=== PATIENT | female | born 2000 | race Caucasian/White ===

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

== ENCOUNTER 2022-02-23 18:38 | Observation (INO) ==
[2022-02-23] MEDS ORDERED: ACETAMINOPHEN 500 MG TAB PO STA (20:18)
[2022-02-23] MEDS ORDERED: SODIUM CHLORIDE 0.9% 1000ML 1,000 ML IV SCH (20:19)
--- NOTE | 2022-02-23 20:25 | Emergency Department Note ---
Impression & Plan Elevated troponin, Cough, Acute electrocardiogram changes, Fever, COVID-19 ED Provider Note CHIEF COMPLAINT: Cough HISTORY OF PRESENT ILLNESS: Mey Stone is a 21 year old female with history of myocarditis, lung granuloma and anxiety who presents to the Emergency Department for evaluation of a persistent cough over the past 4 weeks with development of fevers and heart palpitations today. The patient states that she initially developed a cough with mucous production when she tested +COVID-19 four weeks prior. Since then, her other associated flu like symptoms had improved, however, her productive cough has persisted. Today, the patient states that she developed a fever of 100.4F and noticed that she felt more short of breath after taking a walk. Additionally, she did note an episode of heart palpitations. The patient did take another COVID-19 test today at home which was negative. As she was concerned for possible pneumonia or other acute illness, she presents to the ED for further evaluation this evening. Currently, she denies having significant discomfort other than having the cough. She did take a dose of Sudafed earlier today with some improvement. She otherwise denies having lightheadedness/dizziness, sore throat, specific chest pain, dyspnea, abdominal pain, nausea, vomiting, diarrhea or urinary symptoms. 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 She states that her symptoms do not feel similar to that time. She was also previously found to have a lung granuloma for which she did follow up with Pulmonary medicine, however she did not go through with additional testing. REVIEW OF SYSTEMS: 10 systems were reviewed and were negative unless otherwise stated in HPI as above PHYSICAL EXAM: VITALS: Vitals are noted on the nurse's note and reviewed by myself. Vital signs stable. General: Resting in bed, no acute distress HEENT: Normocephalic, atraumatic, PERRL, EOMI, mucous membranes moist, oropharynx clear Neck: Supple, no lymphadenopathy, non-tender to palpation, ROM intact without pain Resp: Good inspiratory effort on room air, lung sounds clear bilaterally without wheezing, rales or rhonchi, no cough during exam CV: Bradycardic rate with occasional PVC, normal S1-S2, peripheral pulses palpated Back: Non-tender to palpation Abd: Soft, non-distended, non-tender MSK: Moving all extremities without apparent pain or difficulty Integumentary: Warm, dry, no appreciable rash Neuro: Awake, alert and oriented x 3, interacting and answering questions appropriately Differential diagnosis includes myocarditis, cardiac ischemia, PE, viral syndrome, bacterial infection, COVID-19, pneumonia, influenza, bronchitis, meningitis as well as others were entertained. EMERGENCY DEPARTMENT COURSE: Physical exam and history were performed. Nursing triage notes, EMR, and medication list were personally reviewed. Patient appears to have a persistent cough over the past 4 weeks with d evelopment of fevers and heart palpitations today. Additional history as described above. See physical exam as noted above. Continuous claim representative: Order was placed for continuous claim representative. Patient was placed on the claim representative. Patient was noted to be in sinus bradycardia at an initial rate of 54 bpm. EKG was obtained and reviewed by myself. This did show sinus bradycardia at 64 bpm with occasional PVC, possible left atrial enlargement with T wave abnormalities in the inferior and lateral leads. When compared to study from 04/11/2021, PVCs are now present and the nonspecific T wave abnormalities in the inferior and lateral leads are new. The patient was offered medications. IV access was established and she was given Tylenol 1000 mg and 1 L NSS. Labs were obtained and reviewed by myself as below. Of note, leukocytosis with a WBC of 11.67. No concern for anemia with hemoglobin 12.2. Electrolytes WNL. Magnesium WNL. Renal indices stable. LFTs nondiagnostic. High-sensitivity troponin I was noted to be elevated at 58.9. ESR was slightly elevated at 21. CRP not elevated at <0.50. Lyme titer, anaplasmosis, Babesia and toxoplasmosis ordered, pending. The patient did test positive for COVID19 here today. Influenza A/B and RSV negative. Chest x-ray and CTA chest were obtained and reviewed by radiologist myself as below. CTA was negative for PE. There were patchy airspace consolidations in the left lung base typical for pneumonia, likely consistent with her COVID19 infection. Upon reevaluation, the patient was doing well. I discussed the results of the above findings with her at bedside as well as her mother over the phone. Given her elevated troponin level with acute EKG changes, I do feel that she would benefit from continued management in the hospital. I did discuss her case with Dr. Burns of the [facility] hospitalist group. She agreed to evaluate the patient. The patient verbalized understanding and agreement with the treatment plan as above. The chart was completed utilizing [employer] Speech Voice Recognition Software. G rammatical errors, random word insertions, pronoun errors, and incomplete sentences are an occasional consequence of this system due to software limitations, ambient noise, and hardware issues. Any formal questions or concerns about the content, text, or information contained within the body of this dictation should be directly addressed to the provider for clarification. Past Med/Surg History Medical History (Updated 02/24/22 @ 01:26 by Ria Delgado PA-C) Allergic rhinitis Lung granuloma Mild intermittent asthma Surgical History (Updated 02/24/22 @ 01:24 by Ria Delgado PA-C) No pertinent past surgical history Social History Smoking Status: Never smoker Second Hand Exposure: No; Hx Alcohol Use: No Hx Substance Use: No Preferred Language: Yakut Beliefs That Will Affect Care: None Current Living Situation: Family Current Living Situation Comment: Home with family; currently residing in college dorm Feels Safe at Home: Yes Assistive Devices: None Allergies Allergies Allergy/AdvReac Type Severity Reaction Status Date / Time pollen extracts Allergy Intermediate CONGESTION Verified 02/23/22 22:17 Home Meds Home Medications Medication Instructions Recorded Confirmed albuterol sulfate 90 mcg/actuation 2 puff inhalation Q6H PRN prior to 04/10/21 02/23/22 aerosol inhaler exercise fexofenadine 180 mg tablet 180 mg PO DAILY PRN Allergic 04/10/21 02/23/22 Symptoms fluticasone propionate 50 2 spray intranasal DAILY PRN 04/10/21 02/23/22 mcg/actuation nasal Allergy Symptoms spray,suspension Results & Data (ED) Vital Signs Vital Signs - 24 hr 02/23/22 18:40 02/23/22 21:30 02/23/22 22:00 Temperature 37.7 C H Temperature Source Temporal Artery Scan Pulse Rate 54 L 54 L 51 L Pulse Rate from SpO2 Sensor 48 L 51 L Respiratory Rate 16 22 24 Blood Pressure 127/51 L 120/60 110/62 Blood Pressure Mean 76 80 78 Pulse Oximetry 98 100 99 Oxygen Delivery Method Room Air Room Air Sepsis Recent Fever Within 48 Hours No Sepsis New/Unexplained Change in Mental Status No Sepsis Action Taken by Nursing No Action Required 02/23/22 22:31 02/23/22 23:00 02/23/22 23:31 Temperature Temperature Source Pulse Rate 52 L 43 L 48 L Pulse Rate from SpO2 Sensor 49 L 43 L 44 L Respiratory Rate 18 22 19 Blood Pressure 124/42 L 115/65 125/68 Blood Pressure Mean 69 81 87 Pulse Oximetry 100 100 98 Oxygen Delivery Method Room Air Room Air Room Air Sepsis Recent Fever Within 48 Hours Sepsis New/Unexplained Change in Mental Status Sepsis Action Taken by Nursing Laboratory Data Result diagrams: 02/23/22 20:45 02/23/22 20:45 Lab Results 02/23/22 02/23/22 02/23/22 Range/Units 20:45 20:45 20:45 WBC 11.67 H (4.8-10.8) K/ul RBC 4.68 (3.93-5.22) M/uL Hgb 12.2 (12.0-16.0) g/dl Hct 38.7 (34.1-44.9) % MCV 82.7 (80.0-100.0) fL MCH 26.1 (25.0-34.0) pg MCHC 31.5 L (32.0-36.0) g/dL RDW Std Deviation 39.0 (36.4-46.3) fL RDW Coeff of Bibi 13.0 (11.5-14.5) % Plt Count 264 (130-400) K/uL MPV 10.6 (9.4-12.3) fL Immature Gran % (Auto) 0.4 % Neut % (Auto) 78.7 % Lymph % (Auto) 13.3 % [place] % (Auto) 7.3 % Eos % (Auto) 0.1 % Baso % (Auto) 0.2 % Neut # (Auto) 9.19 H (1.4-6.5) K/uL Lymph # (Auto) 1.55 (1.2-3.4) K/uL [place] # (Auto) 0.85 H (0.24-0.82) K/uL Eos # (Auto) 0.01 (0-0.50) K/uL Baso # (Auto) 0.02 (0-0.2) K/uL Immature Gran # (Auto) 0.05 H (0.00-0.02) K/uL ESR (0-20) mm/hr Sodium 137 (136-145) mmol/L Potassium 3.6 (3.5-5.1) mmol/L Chloride 102 (98-107) mmol/L Carbon Dioxide 29 (21-32) mmol/L Anion Gap 6 (3-11) BUN 11 (6-23) mg/dl Creatinine 0.84 (0.6-1.2) mg/dl Est Cr Clr Drug Dosing 112.6 ml/min Est GFR ( Amer) 116.8 ml/min Est GFR (Non-Af Amer) 100.8 ml/min BUN/Creatinine Ratio 13.1 (10-20) Glucose 97 (70-99(Fasting)) mg/dl Calcium 9.6 (8.5-10.1) mg/dl Magnesium (1.7-2.4) mg/dl Total Bilirubin 1.0 (0.2-1.0) mg/dl AST 23 (13-39) U/L ALT 13 (7-52) U/L Alkaline Phosphatase 90 (34-104) U/L Troponin I High Sens 58.9 H* (0-14) pg/ml C-Reactive Protein (0-0.5) mg/dl Total Protein 8.0 (6.0-8.3) gm/dl Albumin 4.7 (3.4-5.0) gm/dl Globulin 3.3 (2.5-4.0) gm/dl Albumin/Globulin Ratio 1.4 (0.9-2) Procalcitonin (0-0.5) ng/ml TSH (0.300-4.500) uIu/ml Anaplasma Smear See Comment Babesia Smear See Comment Lyme Disease IgG Ab (Negative) Lyme Disease IgM Ab (Negative) SARS-CoV-2 (PCR) (Negative) Influenza Type A (PCR) (Neg) Influenza Type B (PCR) (Neg) RSV (RT-PCR) (Neg) 02/23/22 02/23/22 02/23/22 Range/Units 20:45 20:45 20:45 WBC (4.8-10.8) K/ul RBC (3.93-5.22) M/uL Hgb (12.0-16.0) g/dl Hct (34.1-44.9) % MCV (80.0-100.0) fL MCH (25.0-34.0) pg MCHC (32.0-36.0) g/dL RDW Std Deviation (36.4-46.3) fL RDW Coeff of Bibi (11.5-14.5) % Plt Count (130-400) K/uL MPV (9.4-12.3) fL Immature Gran % (Auto) % Neut % (Auto) % Lymph % (Auto) % [place] % (Auto) % Eos % (Auto) % Baso % (Auto) % Neut # (Auto) (1.4-6.5) K/uL Lymph # (Auto) (1.2-3.4) K/uL [place] # (Auto) (0.24-0.82) K/uL Eos # (Auto) (0-0.50) K/uL Baso # (Auto) (0-0.2) K/uL Immature Gran # (Auto) (0.00-0.02) K/uL ESR 21 H (0-20) mm/hr Sodium (136-145) mmol/L Potassium (3.5-5.1) mmol/L Chloride (98-107) mmol/L Carbon Dioxide (21-32) mmol/L Anion Gap (3-11) BUN (6-23) mg/dl Creatinine (0.6-1.2) mg/dl Est Cr Clr Drug Dosing ml/min Est GFR ( Amer) ml/min Est GFR (Non-Af Amer) ml/min BUN/Creatinine Ratio (10-20) Glucose (70-99(Fasting)) mg/dl Calcium (8.5-10.1) mg/dl Magnesium 2.1 (1.7-2.4) mg/dl Total Bilirubin (0.2-1.0) mg/dl AST (13-39) U/L ALT (7-52) U/L Alkaline Phosphatase (34-104) U/L Troponin I High Sens (0-14) pg/ml C-Reactive Protein < 0.50 (0-0.5) mg/dl Total Protein (6.0-8.3) gm/dl Albumin (3.4-5.0) gm/dl Globulin (2.5-4.0) gm/dl Albumin/Globulin Ratio (0.9-2) Procalcitonin < 0.05 (0-0.5) ng/ml TSH (0.300-4.500) uIu/ml Anaplasma Smear Babesia Smear Lyme Disease IgG Ab Negative (Negative) Lyme Disease IgM Ab Positive A (Negative) SARS-CoV-2 (PCR) (Negative) Influenza Type A (PCR) (Neg) Influenza Type B (PCR) (Neg) RSV (RT-PCR) (Neg) 02/23/22 02/23/22 Range/Units 20:45 22:50 WBC (4.8-10.8) K/ul RBC (3.93-5.22) M/uL Hgb (12.0-16.0) g/dl Hct (34.1-44.9) % MCV (80.0-100.0) fL MCH (25.0-34.0) pg MCHC (32.0-36.0) g/dL RDW Std Deviation (36.4-46.3) fL RDW Coeff of Bibi (11.5-14.5) % Plt Count (130-400) K/uL MPV (9.4-12.3) fL Immature Gran % (Auto) % Neut % (Auto) % Lymph % (Auto) % [place] % (Auto) % Eos % (Auto) % Baso % (Auto) % Neut # (Auto) (1.4-6.5) K/uL Lymph # (Auto) (1.2-3.4) K/uL [place] # (Auto) (0.24-0.82) K/uL Eos # (Auto) (0-0.50) K/uL Baso # (Auto) (0-0.2) K/uL Immature Gran # (Auto) (0.00-0.02) K/uL ESR (0-20) mm/hr Sodium (136-145) mmol/L Potassium (3.5-5.1) mmol/L Chloride (98-107) mmol/L Carbon Dioxide (21-32) mmol/L Anion Gap (3-11) BUN (6-23) mg/dl Creatinine (0.6-1.2) mg/dl Est Cr Clr Drug Dosing ml/min Est GFR ( Amer) ml/min Est GFR (Non-Af Amer) ml/min BUN/Creatinine Ratio (10-20) Glucose (70-99(Fasting)) mg/dl Calcium (8.5-10.1) mg/dl Magnesium (1.7-2.4) mg/dl Total Bilirubin (0.2-1.0) mg/dl AST (13-39) U/L ALT (7-52) U/L Alkaline Phosphatase (34-104) U/L Troponin I High Sens (0-14) pg/ml C-Reactive Protein (0-0.5) mg/dl Total Protein (6.0-8.3) gm/dl Albumin (3.4-5.0) gm/dl Globulin (2.5-4.0) gm/dl Albumin/Globulin Ratio (0.9-2) Procalcitonin (0-0.5) ng/ml TSH 0.862 (0.300-4.500) uIu/ml Anaplasma Smear Babesia Smear Lyme Disease IgG Ab (Negative) Lyme Disease IgM Ab (Negative) SARS-CoV-2 (PCR) POSITIVE A* (Negative) Influenza Type A (PCR) Negative (Neg) Influenza Type B (PCR) Negative (Neg) RSV (RT-PCR) Negative (Neg) Administered Medications Discontinued Medications Acetaminophen (Acetaminophen 500 Mg Tab) 1,000 mg PO NOW STA Stop: 02/23/22 20:19 Last Admin: 02/23/22 20:53 Dose: 1,000 mg Documented By: ANA LAURA Sodium Chloride (Nss 1000ml) 1,000 mls @ 999 mls/hr IV .Q1H1M JOVANNI Stop: 02/23/22 21:19 Last Infusion: 02/23/22 22:03 Dose: 0 mls/hr Documented By: ANA LAURA Admin: 02/23/22 20:53 Dose: 999 mls/hr Documented By: ANA LAURA Ioversol (Optiray 320 125ml) 120 ml IV ONCE ONE Stop: 02/23/22 22:10 Last Admin: 02/23/22 22:13 Dose: 120 ml Documented By: ALINE Imaging Data Radiologist's Impression: Chest X-Ray 02/23/22 19:47 SINGLE VIEW CHEST CLINICAL HISTORY: Cough. FINDINGS: An AP, portable, upright chest radiograph is compared to chest x-ray and chest CT dated 04/10/2021. Calcified right hilar nodes are unchanged. The cardiomediastinal silhouette is unremarkable. The lungs and pleural spaces are clear. No pneumothorax is seen. The bony thorax is grossly intact. IMPRESSION: No active disease in the chest. ACT 112: Negative or not required by law. Electronically signed by: Reid Perez M.D. 02/23/2022 8:58 PM Chest CTA 02/23/22 20:15 CT ANGIOGRAM OF THE CHEST CLINICAL HISTORY: Atypical chest pain. Cough. Recent Covid. COMPARISON STUDY: Chest x-ray dated 02/23/2022. Chest CT dated 04/10/2021. TECHNIQUE: Following the IV administration of 120 cc of Optiray 320, CT angiogram of the chest was performed from the upper abdomen to the thoracic inlet utilizing the pulmonary embolus protocol. Images are reviewed in the axial, sagittal, and coronal planes. 3-D MIPS images are created and assessed. IV contrast was administered without complication. A dose lowering technique was utilized adhering to the principles of ALARA. CT DOSE: 238.13 mGy.cm FINDINGS: Thyroid: Normal in size and attenuation. Thoracic aorta: The thoracic aorta is normal in caliber and demonstrates standard 3-vessel arch anatomy. The thoracic aorta is not well opacified. Pulmonary vasculature: The pulmonary trunk is normal in caliber. There are no filling defects identified in main, lobar, or segmental pulmonary branches to suggest pulmonary embolus. Heart: The heart is normal in size and without pericardial effusion. Lungs and pleural spaces: There is mild patchy airspace consolidation at the left lung base. No pleural effusion is identified. Scattered calcified granulom as are observed. The trachea and central airways are patent. Mediastinum: Calcified mediastinal lymph nodes are similar to previous. No pathologically enlarged mediastinal lymph nodes are identified. Sowmya: Calcified right hilar lymph nodes are similar to previous. No pathologically enlarged hilar lymph nodes are identified. Axillae: There is no axillary lymphadenopathy. Upper abdomen: There is a calcified splenic granuloma. Partially visualized upper abdominal viscera is otherwise within normal limits. Skeletal structures: A hemangioma is noted in the body of T2. No lytic or blastic bony lesions are seen. IMPRESSION: 1. There is no evidence of pulmonary embolus in the main, lobar, or segmental p ulmonary arteries. 2. Patchy airspace consolidation at the left lung base is typical for pneumonia. Clinical correlation will be required and radiographic follow-up to resolution is recommended. Radiographic follow-up should include both PA and lateral views. ACT 112: Negative or not required by law. Electronically signed by: Reid Perez M.D. 02/23/2022 10:30 PM Discharge Plan Visit Data Chief Complaint: Cough Stated Complaint: COUGH, POSSIBLE PNEUMONIA. FEVER 100.4 - COV TEST ED Provider: [facility] Midlevel Provider: Ria Delgado Discharge Problem: Elevated troponin, Cough, Acute electrocardiogram changes, Fever, COVID-19 Patient Disposition: Admitted As Inpatient Forms Stand Alone Forms: S-cubism Prescriptions Prescriptions: No Action fexofenadine 180 mg Tablet 180 mg PO DAILY PRN (Reason: Allergic Symptoms) albuterol sulfate 90 mcg/actuation Hfa Aerosol Inhaler 2 puff INHALATION Q6H PRN (Reason: prior to exercise) Rx Instructions: and uses as needed for allergy season fluticasone propionate 50 mcg/actuation Rebecca,Suspension 2 spray INTRANASAL DAILY PRN (Reason: Allergy Symptoms) Referrals Referrals: [facility] [Primary Care Provider] -
--- NOTE | 2022-02-23 20:59 | XRay Report ---
SINGLE VIEW CHEST CLINICAL HISTORY: Cough. FINDINGS: An AP, portable, upright chest radiograph is compared to chest x-ray and chest CT dated 03/14. Calcified right hilar nodes are unchanged. The cardiomediastinal silhouette is unremarkable. The lungs and pleural spaces are clear. No pneumothorax is seen. The bony thorax is grossly intact. IMPRESSION: No active disease in the chest. ACT 112: Negative or not required by law. Electronically signed by: Reid Perez M.D. 02/23/2022 8:58 PM
[2022-02-23 21:07] LABS: Basophils # (auto) 0.02 K/uL (0-0.2); Basophils % (auto) 0.2 %; Eosinophils # (auto) 0.01 K/uL (0-0.50); Eosinophils % (auto) 0.1 %; Hematocrit (blood only) 38.7 % (34.1-44.9); Hemoglobin 12.2 g/dl (12.0-16.0); Immature Granulocytes # (auto) 0.05 K/uL (0.00-0.02); Immature Granulocytes % (auto) 0.4 %; Lymphocytes # (auto) 1.55 K/uL (1.2-3.4); Lymphocytes % (auto) 13.3 %; Mean Corpuscular Hemoglobin 26.1 pg (25.0-34.0); Mean Corpuscular Hgb Conc 31.5 g/dL (32.0-36.0); Mean Corpuscular Volume 82.7 fL (80.0-100.0); Mean Platelet Volume 10.6 fL (9.4-12.3); Monocytes # (auto) 0.85 K/uL (0.24-0.82); Monocytes % (auto) 7.3 %; Neutrophils # (auto) 9.19 K/uL (1.4-6.5); Neutrophils % (auto) 78.7 %; Platelet Count 264 K/uL (130-400); Red Blood Count 4.68 M/uL (3.93-5.22); White Blood Count 11.67 K/ul (4.8-10.8)
[2022-02-23 21:35] LABS: Albumin Globulin Ratio 1.4 (0.9-2); Albumin Level 4.7 gm/dl (3.4-5.0); BUN Creatinine Ratio 13.1 (10-20); Calcium 9.6 mg/dl (8.5-10.1); Creatinine Clr Calc Pharmacy 112.6 ml/min; Est GFR (African American) 116.8 ml/min; Est GFR (Non-African American) 100.8 ml/min; Globulin 3.3 gm/dl (2.5-4.0); Potassium 3.6 mmol/L (3.5-5.1)
[2022-02-23 21:40] LABS: Troponin I High Sensitivity 58.9 pg/ml (0-14)
[2022-02-23] MEDS ORDERED: OPTIRAY 320 125ml IV ONE (22:09)
--- NOTE | 2022-02-23 22:32 | CT Scan Report ---
CT ANGIOGRAM OF THE CHEST CLINICAL HISTORY: Atypical chest pain. Cough. Recent Covid. COMPARISON STUDY: Chest x-ray dated 02/23/2022. Chest CT dated 04/10/2021. TECHNIQUE: Following the IV administration of 120 cc of Optiray 320, CT angiogram of the chest was pe rformed from the upper abdomen to the thoracic inlet utilizing the pulmonary embolus protocol. Images are reviewed in the axial, sagittal, and coronal planes. 3-D MIPS images are created and assessed. I V contrast was administered without complication. A dose lowering technique was utilized adhering to the principles of ALARA. CT DOSE: 238.13 mGy.cm FINDINGS: Thyroid: Normal in size and attenuation. Thoracic aorta: The thoracic aorta is normal in caliber and demonstrates standard 3-vessel arch anato my. The thoracic aorta is not well opacified. Pulmonary vasculature: The pulmonary trunk is normal in caliber. There are no filling defects identif ied in main, lobar, or segmental pulmonary branches to suggest pulmonary embolus. Heart: The heart is normal in size and without pericardial effusion. Lungs and pleural spaces: There is mild patchy airspace consolidation at the left lung base. No pleur al effusion is identified. Scattered calcified granulomas are observed. The trachea and central airwa ys are patent. Mediastinum: Calcified mediastinal lymph nodes are similar to previous. No pathologically enlarged me diastinal lymph nodes are identified. Sowmya: Calcified right hilar lymph nodes are similar to previous. No pathologically enlarged hilar lym ph nodes are identified. Axillae: There is no axillary lymphadenopathy. Upper abdomen: There is a calcified splenic granuloma. Partially visualized upper abdominal viscera i s otherwise within normal limits. Skeletal structures: A hemangioma is noted in the body of T2. No lytic or blastic bony lesions are se en. IMPRESSION: 1. There is no evidence of pulmonary embolus in the main, lobar, or segmental pulmonary arteries. 2. Patchy airspace consolidation at the left lung base is typical for pneumonia. Clinical correlation will be required and radiographic follow-up to resolution is recommended. Radiographic follow-up rosa uld include both PA and lateral views. ACT 112: Negative or not required by law. Electronically signed by: Reid Perez M.D. 02/23/2022 10:30 PM
[2022-02-23 23:01] LABS: C Reactive Protein < 0.50 mg/dl (0-0.5); Magnesium 2.1 mg/dl (1.7-2.4)
[2022-02-23 23:31] LABS: Procalcitonin < 0.05 ng/ml (0-0.5)
[2022-02-23 23:37] LABS: Lyme Ab IgG w/WB Rflx Negative (Negative)
[2022-02-23 23:48] LABS: Lyme Ab IgM w/WB Rflx Positive (Negative)
--- NOTE | 2022-02-23 23:49 | History & Physical Report ---
Date of Service February 23, 2022 Assessment & Plan (1) Myocarditis: Plan: 21yo female with history of myocarditis presenting with complaint of chest tightness, elevated HS-troponin of 58.9. Recent Covid-19 infection. Lyme IgM POSITIVE with Western blot pending Ddx to include myocarditis, ?infections secondary to recent Covid-19 infection. ?Lyme - was presumed before but patient had negative Western blot. Elevated WBC=11.67 and ESR of 21 -Telemetry monitoring -Trend troponin -Check 2D echo -Colchicine 0.6mg po BID -Lyme serology, Anaplasma, Babesia and Toxoplasma sent from ER - results pending -Cardiology consultation appreciated Patient is very active, avid runner. Has baseline bradycardia with HR 40's - 50's. Has had junctional rhythm with AV dissociation in the past most likely secondary to increased vagal tone. (2) Pneumonia: Plan: Patient with persistent cough productive for yellow sputum. New fever, chills today. CT suggestive of consolidation in LLL, crackles on exam. Patient is non-toxic in appearance, HD stable, no respiratory distress, adequate oxygenation on room air -Azithromycin and Ceftriaxone for possible CAP -Tylenol as needed -Zofran as needed (3) COVID-19: Plan: Patient POSITIVE for Covid-19 several weeks ago (3-4 weeks ago). PCR test is POSITIVE today as well. Doubt that this represents a new infection. PCR may remain positive up to 3 months of infection due to detection of viral particles. -Maintain isolation precautions for now -Monitor oxygenation (4) Mild intermittent asthma: Plan: Chronic. Stable. No wheezing History of Present Illness Chief Complaint: chest tightness Primary Care Provider: [facility] Mey Stone is a 21yo female presenting with tightness in her chest and lungs. Patient tested POSITIVE for Covid-19 infection appx 3-4 weeks ago. Overall she had a benign course. She has had a persistent cough since then, productive for thick yellow sputum. Today 02/23/22 she developed fever, chills as well as a feeling of tightness in her chest and lungs as well as feeling some palpitations. No syncope or dizziness (has some baseline dizziness with positional changes). She has had nasal congestion today as well and loss of taste and smell this AM. She performed a rapid Covid-19 test at home which was NEGATIVE. In the ER she is afebrile, HD stable - baseline bradycardia with frequent PVCs HS-troponin elevated at 58.9 as well as elevation of ESR to 21 and WBC to 11.67 Patient was hospitalized at [facility] on 04/11/21 after developing chest discomfort while running. She was noted to have an elevated troponin at 0.47. Echocardiogram was NORMAL. She was treated with Colchicine and Doxycycline for possible Lyme carditis. Her Western Blot analysis was found to be equivocal. Her cardiac rhythm during admission showed bradycardia and junctional rhythm with AV dissociation due to increased vagal tone. Frequent PVCs noted on Holter monitor 8% of beats on Holter monitor with two 4- beat NSVT runs Patient was seen by Cardiology in followup on 05/23/21. Allergies Allergy/AdvReac Type Severity Reaction Status Date / Time pollen extracts Allergy Intermediate CONGESTION Verified 02/23/22 22:17 Home Medications Medication Instructions Recorded Confirmed Type albuterol sulfate 90 mcg/actuation 2 puff inhalation Q6H PRN prior to 04/10/21 02/23/22 History aerosol inhaler exercise fexofenadine 180 mg tablet 180 mg PO DAILY PRN Allergic 04/10/21 02/23/22 History Symptoms fluticasone propionate 50 2 spray intranasal DAILY PRN 04/10/21 02/23/22 History mcg/actuation nasal Allergy Symptoms spray,suspension Past Med/Surg History Medical History (Updated 02/24/22 @ 03:20 by Mariana Burns DO) Allergic rhinitis Lung granuloma Mild intermittent asthma Myocarditis Surgical History (Updated 02/24/22 @ 01:24 by Ria Delgado PA-C) No pertinent past surgical history Family History (Updated 02/24/22 @ 03:12 by Mariana Burns DO) Other Family history non-contributory Social History Smoking Status: Never smoker Second Hand Exposure: No; Hx Alcohol Use: Yes Alcohol type: wine Hx Substance Use: No Preferred Language: Algerian Communication Ability: Effective Neurological Physiotherapist Required: No Beliefs That Will Affect Care: None Current Living Situation: Family Current Living Situation Comment: lives in a dorm, when not in a dorm at home with her family Other Information That Helps Us Care for You: No Feels Safe at Home: Yes Safety Concerns: Feels Safe At This Time Assistive Devices: None Review of Systems Review of Systems: All systems reviewed & are unremarkable except as noted in HPI & below Physical Exam Physical Exam: General: patient resting comfortably, NAD, non-toxic in appearance, AA&O x 4 Skin: warm, dry, intact, no rashes or lesions HEENT: NC/AT, PERRL, EOMI, anicteric sclera, conjunctiva without injection, external ear normal to inspection and nontender, nares patent, moist mucus membranes, dentition intact, no oropharyngeal lesions, neck supple, trachea midline, no LAD, no thyromegaly, no JVD Heart: +S1/S2, regular, bradycardic with occasional ectopic beat, no m/r/g Lungs: equal air entry bilaterally, crackles present in left base, no rhonchi/wheezes Abd: +BS, soft, NT/ND, no masses/organomegaly/ascites Ext: warm, 2+ pulses in UE/LE bilaterally, no clubbing/cyanosis or edema Neuro: nonfocal, patient AA&O x 4, speech intact, no facial droop, moving all extremities on command with equal strength 5/5 Results & Data Results & Data ([facility]) Vital Signs (Past 12 Hours) Vital Signs Temp Pulse Resp BP Pulse Ox O2 Del Method 02/23/22 23:31 48 L 19 125/68 98 Room Air 02/23/22 23:00 43 L 22 115/65 100 Room Air 02/23/22 22:31 52 L 18 124/42 L 100 Room Air 02/23/22 22:00 51 L 24 110/62 99 Room Air 02/23/22 21:30 54 L 22 120/60 100 Room Air 02/23/22 18:40 37.7 C H 54 L 16 127/51 L 98 Laboratory Results Laboratory Results WBC 11.67 K/ul (4.8-10.8) H 02/23/22 20:45 RBC 4.68 M/uL (3.93-5.22) 02/23/22 20:45 Hgb 12.2 g/dl (12.0-16.0) 02/23/22 20:45 Hct 38.7 % (34.1-44.9) 02/23/22 20:45 MCV 82.7 fL (80.0-100.0) 02/23/22 20:45 MCH 26.1 pg (25.0-34.0) 02/23/22 20:45 MCHC 31.5 g/dL (32.0-36.0) L 02/23/22 20:45 RDW Std Deviation 39.0 fL (36.4-46.3) 02/23/22 20:45 RDW Coeff of Bibi 13.0 % (11.5-14.5) 02/23/22 20:45 Plt Count 264 K/uL (130-400) 02/23/22 20:45 MPV 10.6 fL (9.4-12.3) 02/23/22 20:45 Immature Gran % (Auto) 0.4 % 02/23/22 20:45 Neut % (Auto) 78.7 % 02/23/22 20:45 Lymph % (Auto) 13.3 % 02/23/22 20:45 [place] % (Auto) 7.3 % 02/23/22 20:45 Eos % (Auto) 0.1 % 02/23/22 20:45 Baso % (Auto) 0.2 % 02/23/22 20:45 Neut # (Auto) 9.19 K/uL (1.4-6.5) H 02/23/22 20:45 Lymph # (Auto) 1.55 K/uL (1.2-3.4) 02/23/22 20:45 [place] # (Auto) 0.85 K/uL (0.24-0.82) H 02/23/22 20:45 Eos # (Auto) 0.01 K/uL (0-0.50) 02/23/22 20:45 Baso # (Auto) 0.02 K/uL (0-0.2) 02/23/22 20:45 Immature Gran # (Auto) 0.05 K/uL (0.00-0.02) H 02/23/22 20:45 ESR 21 mm/hr (0-20) H 02/23/22 20:45 Sodium 137 mmol/L (136-145) 02/23/22 20:45 Potassium 3.6 mmol/L (3.5-5.1) 02/23/22 20:45 Chloride 102 mmol/L (98-107) 02/23/22 20:45 Carbon Dioxide 29 mmol/L (21-32) 02/23/22 20:45 Anion Gap 6 (3-11) 02/23/22 20:45 BUN 11 mg/dl (6-23) 02/23/22 20:45 Creatinine 0.84 mg/dl (0.6-1.2) 02/23/22 20:45 Est Cr Clr Drug Dosing 112.6 ml/min 02/23/22 20:45 Est GFR ( Amer) 116.8 ml/min 02/23/22 20:45 Est GFR (Non-Af Amer) 100.8 ml/min 02/23/22 20:45 BUN/Creatinine Ratio 13.1 (10-20) 02/23/22 20:45 Glucose 97 mg/dl (70-99(Fasting)) 02/23/22 20:45 Calcium 9.6 mg/dl (8.5-10.1) 02/23/22 20:45 Magnesium 2.1 mg/dl (1.7-2.4) 02/23/22 20:45 Total Bilirubin 1.0 mg/dl (0.2-1.0) 02/23/22 20:45 AST 23 U/L (13-39) 02/23/22 20:45 ALT 13 U/L (7-52) 02/23/22 20:45 Alkaline Phosphatase 90 U/L (34-104) 02/23/22 20:45 Troponin I High Sens 58.9 pg/ml (0-14) H* 02/23/22 20:45 C-Reactive Protein < 0.50 mg/dl (0-0.5) 02/23/22 20:45 Total Protein 8.0 gm/dl (6.0-8.3) 02/23/22 20:45 Albumin 4.7 gm/dl (3.4-5.0) 02/23/22 20:45 Globulin 3.3 gm/dl (2.5-4.0) 02/23/22 20:45 Albumin/Globulin Ratio 1.4 (0.9-2) 02/23/22 20:45 Procalcitonin < 0.05 ng/ml (0-0.5) 02/23/22 20:45 TSH 0.862 uIu/ml (0.300-4.500) 02/23/22 20:45 Anaplasma Smear See Comment 02/23/22 20:45 Babesia Smear See Comment 02/23/22 20:45 Lyme Disease IgG Ab Negative (Negative) 02/23/22 20:45 Lyme Disease IgM Ab Positive (Negative) A 02/23/22 20:45 SARS-CoV-2 (PCR) POSITIVE (Negative) A* 02/23/22 22:50 Influenza Type A (PCR) Negative (Neg) 02/23/22 22:50 Influenza Type B (PCR) Negative (Neg) 02/23/22 22:50 RSV (RT-PCR) Negative (Neg) 02/23/22 22:50 Impressions Chest X-Ray 02/23/22 19:47 SINGLE VIEW CHEST CLINICAL HISTORY: Cough. FINDINGS: An AP, portable, upright chest radiograph is compared to chest x-ray and chest CT dated 04/10/2021. Calcified right hilar nodes are unchanged. The cardiomediastinal silhouette is unremarkable. The lungs and pleural spaces are clear. No pneumothorax is seen. The bony thorax is grossly intact. IMPRESSION: No active disease in the chest. ACT 112: Negative or not required by law. Electronically signed by: Reid Perez M.D. 02/23/2022 8:58 PM Chest CTA 02/23/22 20:15 CT ANGIOGRAM OF THE CHEST CLINICAL HISTORY: Atypical chest pain. Cough. Recent Covid. COMPARISON STUDY: Chest x-ray dated 02/23/2022. Chest CT dated 04/10/2021. TECHNIQUE: Following the IV administration of 120 cc of Optiray 320, CT angiogram of the chest was performed from the upper abdomen to the thoracic inlet utilizing the pulmonary embolus protocol. Images are reviewed in the axial, sagittal, and coronal planes. 3-D MIPS images are created and assessed. IV contrast was administered without complication. A dose lowering technique was utilized adhering to the principles of ALARA. CT DOSE: 238.13 mGy.cm FINDINGS: Thyroid: Normal in size and attenuation. Thoracic aorta: The thoracic aorta is normal in caliber and demonstrates standard 3-vessel arch anatomy. The thoracic aorta is not well opacified. Pulmonary vasculature: The pulmonary trunk is normal in caliber. There are no filling defects identified in main, lobar, or segmental pulmonary branches to suggest pulmonary embolus. Heart: The heart is normal in size and without pericardial effusion. Lungs and pleural spaces: There is mild patchy airspace consolidation at the left lung base. No pleural effusion is identified. Scattered calcified granulomas are observed. The trachea and central airways are patent. Mediastinum: Calcified mediastinal lymph nodes are similar to previous. No pathologically enlarged mediastinal lymph nodes are identified. [place]: Calcified right hilar lymph nodes are similar to previous. No pathologically enlarged hilar lymph nodes are identified. Axillae: There is no axillary lymphadenopathy. Upper abdomen: There is a calcified splenic granuloma. Partially visualized upper abdominal viscera is otherwise within normal limits. Skeletal structures: A hemangioma is noted in the body of T2. No lytic or blastic bony lesions are seen. IMPRESSION: 1. There is no evidence of pulmonary embolus in the main, lobar, or segmental pulmonary arteries. 2. Patchy airspace consolidation at the left lung base is typical for pneumonia. Clinical correlation will be required and radiographic follow-up to resolution is recommended. Radiographic follow-up should include both PA and lateral views. ACT 112: Negative or not required by law. Electronically signed by: Reid Perez M.D. 02/23/2022 10:30 PM PG Care Time/CCT Total # of Minutes Spent Total Time Spent with Patient: Total time spent is greater than 50% in coordination of care (as documented) at patient's floor/unit and/or counseling patient: Coding Level of Care Code 41063 Initial Inpt Care Lvl 2 Diagnoses Myocarditis I51.4 Pneumonia J18.9 COVID-19 U07.1 Mild intermittent asthma J45.20
[2022-02-23 23:51] LABS: Influenza A virus by PCR Negative (Neg); Influenza B virus by PCR Negative (Neg); RSV by PCR Negative (Neg)
[2022-02-23 23:56] LABS: SARS CoV2 RNA(COVID-19) InHosp POSITIVE (Negative)
[2022-02-24] MEDS ORDERED: ACETAMINOPHEN 325 MG TAB PO PRN (02:02)
[2022-02-24] MEDS ORDERED: ONDANSETRON INJ 2 MG/ML 2 ML VIAL IV PRN (02:02)
[2022-02-24] MEDS ORDERED: AZITHROMYCIN 500 MG in DEXTROSE 5% 250 ML IV ONE (02:45)
[2022-02-24] MEDS ORDERED: cefTRIAXone SODIUM 1,000 MG in DEXTROSE 5% 50 ML IV SCH (03:00)
[2022-02-24 04:03] LABS: Basophils # (auto) 0.03 K/uL (0-0.2); Basophils % (auto) 0.3 %; Hematocrit (blood only) 35.2 % (34.1-44.9); Hemoglobin 11.1 g/dl (12.0-16.0); Immature Granulocytes # (auto) 0.03 K/uL (0.00-0.02); Immature Granulocytes % (auto) 0.3 %; Lymphocytes # (auto) 2.56 K/uL (1.2-3.4); Lymphocytes % (auto) 24.8 %; Mean Corpuscular Hemoglobin 26.4 pg (25.0-34.0); Mean Corpuscular Hgb Conc 31.5 g/dL (32.0-36.0); Mean Corpuscular Volume 83.8 fL (80.0-100.0); Mean Platelet Volume 10.8 fL (9.4-12.3); Monocytes # (auto) 0.87 K/uL (0.24-0.82); Monocytes % (auto) 8.4 %; Neutrophils # (auto) 6.73 K/uL (1.4-6.5); Neutrophils % (auto) 65.2 %; Platelet Count 235 K/uL (130-400); RDW Coefficient of Variation 13.2 % (11.5-14.5); RDW Standard Deviation 40.5 fL (36.4-46.3); White Blood Count 10.32 K/ul (4.8-10.8)
[2022-02-24 04:32] LABS: BUN Creatinine Ratio 13.3 (10-20); Calcium 9.1 mg/dl (8.5-10.1); Creatinine Clr Calc Pharmacy 126.1 ml/min; Est GFR (African American) 133.9 ml/min; Est GFR (Non-African American) 115.6 ml/min; Potassium 4.4 mmol/L (3.5-5.1)
[2022-02-24 04:51] LABS: Troponin I High Sensitivity 47.3 pg/ml (0-14)
--- NOTE | 2022-02-24 07:17 | Hospitalist Progress Note ---
Date of Service February 24, 2022 Assessment & Plan (1) Myocarditis: (2) Pneumonia: (3) COVID-19: (4) Mild intermittent asthma: Plan Ms. Stone is a 21 y/o female with a PMHx of myocarditis, asthma, allergic rhinitis, and recent COVID infection here for evaluation of chest tightness and productive cough who is doing well today. #Myocarditis Patient here with chest and lung tightness with associated fever, chills, myalgias, palpitations, nasal congestion, and loss of taste/smell. No syncope or dizziness beyond her baseline positional dizziness. She was found to have elevated HS-trop 58.9 --> 47.3. Patient also had elevated WBC 11.67 on admission and an ESR of 21. Of note, patient had a recent covid-19 infection approx 3-4 weeks prior. She took a rapid test at home yesterday which was negative. She tested positive for covid-19 here in the hospital. Lyme IgM + with western blot pending. Influenza A/B negative. Of note she was diagnosed with myocarditis 04/11/21 at [facility]. At that time she had developed chest discomfort while running and had an elevated trop at 0.48. She was treated with colchicine and doxy for possible Lyme carditis. Western blot was equivocal at that time. Patient was directed to f/u with cards outpatient because her rhythm during admission was bradycardic and had junctional rhythm with AV dissociation likely due to increased vagal tone. Holter monitor showed frequent PVCs 8% of beats on Holter with two 4-beat NSVT runs. Patient is an avid runner with baseline bradycardia 40-50s. Consulted cardiology. Patient is extremely physically active. She runs every day during the school year. During the summer she swims and bikes every day. She "pushes her body to the limit" every time she exercises and does not take rest days. [] will trend troponin - 58.9 --> 47.3 --> 54.5 [] on tele [] will f/u 2D Echo results [] continue Colchicine 0.6 mg po BID [] Lyme serology, Anaplasma, Babesia, and Toxoplasma [] consulted cards - appreciate recs #Pneumonia Patient had COVID-19 approximately 3-4 weeks ago. Her course was relatively benign. She reports persistent productive cough since the infection with yellow sputum. New fevers and chills today. CTA suggests LLL consolidation, crackles on exam. Patient is HDS in NAD with no increased work of breathing and adequate oxygenation on room air. [] Azithromycin 250 mg and CTX 1 g for possible CAP - day 1 of abx [] Tylenol and Zofran PRN #COVID-19 Patient tested positive for COVID-19 3-4 weeks ago. PCR positive on admission. It is possible this is a new infection given the abrupt onset of symptoms - fever, chills, myalgias, loss of taste/smell. Continue isolation precautions for now. Monitor for respiratory distress. PCR may remain positive for up to 3 months s/p infection. [] on isolation precautions [] monitor respiratory status Chronic conditions: #Mild intermittent asthma Chronic. Stable. No wheezing GEN/GI: regular diet DVT ppx: Code Status: Full Dispo: medically stable Admission and Anticipated Discharge Date Admission Date: February 23, 2022 Supervising Physician Co-Signing Physician Notes Attending attestation Pt seen and examined in concert with Dr. Neal. In agreement with the documented findings as noted in the resident documentation with any exceptions or additions as noted here. Gradual improvement in fatigue with no recurrence of fevers/chills nor worsening chest pain. On examination, S1/S2 nl RRR no MCG. CTAB. Abd NT/ND BS+ve LLL PNA in the setting of suspsected COVID-19 reinfection - isolation - continue ceftriaxone, azithromycin. If tolerating, likely transition to PO abx in AM. Monitor closely for fever Elevated troponin in the setting of myocarditis - cardiology consult - continue colchicine Junctional rhythm - chronic - patient with considerable exercise history and counseled re: rest to support recovery in the setting of PNA, COVID and myocarditis Else see resident documentation as noted. Subjective Patient was seen at bedside this AM. She notes that this is the best she's felt in a week. The patient denies any f/c/myalgias/chest tightness/SOB/difficulty urinating or stooling. Review of Systems Review of Systems: See subjective/HPI Physical Exam Physical Exam: General: patient resting comfortably, NAD, non-toxic in appearance, A&O x 4 Skin: warm, dry, intact, no rashes or lesions HEENT: NC/AT, PERRL, EOMI, anicteric sclera, conjunctiva without injection, external ear normal to inspection and nontender, nares patent, moist mucus membranes, dentition intact, no oropharyngeal lesions, neck supple, trachea midline, no LAD, no thyromegaly, no JVD Heart: +S1/S2, regular, bradycardic with occasional ectopic beat, no m/r/g Lungs: equal air entry bilaterally, crackles present in left base, no rhonchi/wheezes Abd: +BS, soft, NT/ND, no masses/organomegaly/ascites Ext: warm, 2+ pulses in UE/LE bilaterally, no clubbing/cyanosis or edema Neuro: nonfocal, patient AA&O x 4, speech intact, no facial droop, moving all extremities on command with equal strength 5/5 Results & Data Results & Data ([facility]) Vital Signs (Past 12 Hours) Vital Signs Temp Pulse Pulse Resp BP BP Pulse Ox 02/24/22 07:00 47 L 02/24/22 02:03 38 L 02/24/22 02:22 44 L 02/24/22 03:12 36.6 C 42 L 18 103/63 99 02/24/22 02:08 02/24/22 02:08 36.7 C 39 L 18 109/62 99 02/24/22 01:00 40 L 19 100/56 L 99 02/24/22 00:00 41 L 20 98/53 L 98 02/23/22 23:31 48 L 19 125/68 98 02/23/22 23:00 43 L 22 115/65 100 02/23/22 22:31 52 L 18 124/42 L 100 02/23/22 22:00 51 L 24 110/62 99 02/23/22 21:30 54 L 22 120/60 100 O2 Del Method 02/24/22 07:00 02/24/22 02:03 02/24/22 02:22 02/24/22 03:12 Room Air 02/24/22 02:08 Room Air 02/24/22 02:08 Room Air 02/24/22 01:00 Room Air 02/24/22 00:00 Room Air 02/23/22 23:31 Room Air 02/23/22 23:00 Room Air 02/23/22 22:31 Room Air 02/23/22 22:00 Room Air 02/23/22 21:30 Room Air Laboratory Results 02/24/22 02/24/22 02/24/22 Range/Units 03:37 03:37 00:15 WBC 10.32 (4.8-10.8) K/ul RBC 4.20 (3.93-5.22) M/uL Hgb 11.1 L (12.0-16.0) g/dl Hct 35.2 (34.1-44.9) % MCV 83.8 (80.0-100.0) fL MCH 26.4 (25.0-34.0) pg MCHC 31.5 L (32.0-36.0) g/dL RDW Std Deviation 40.5 (36.4-46.3) fL RDW Coeff of Bibi 13.2 (11.5-14.5) % Plt Count 235 (130-400) K/uL MPV 10.8 (9.4-12.3) fL Immature Gran % (Auto) 0.3 % Neut % (Auto) 65.2 % Lymph % (Auto) 24.8 % Cochran % (Auto) 8.4 % Eos % (Auto) 1.0 % Baso % (Auto) 0.3 % Neut # (Auto) 6.73 H (1.4-6.5) K/uL Lymph # (Auto) 2.56 (1.2-3.4) K/uL Cochran # (Auto) 0.87 H (0.24-0.82) K/uL Eos # (Auto) 0.10 (0-0.50) K/uL Baso # (Auto) 0.03 (0-0.2) K/uL Immature Gran # (Auto) 0.03 H (0.00-0.02) K/uL ESR (0-20) mm/hr Sodium 139 (136-145) mmol/L Potassium 4.4 D (3.5-5.1) mmol/L Chloride 106 (98-107) mmol/L Carbon Dioxide 28 (21-32) mmol/L Anion Gap 5 (3-11) BUN 10 (6-23) mg/dl Creatinine 0.75 (0.6-1.2) mg/dl Est Cr Clr Drug Dosing 126.1 ml/min Est GFR ( Amer) 133.9 ml/min Est GFR (Non-Af Amer) 115.6 ml/min BUN/Creatinine Ratio 13.3 (10-20) Glucose 98 (70-99(Fasting)) mg/dl Calcium 9.1 (8.5-10.1) mg/dl Magnesium (1.7-2.4) mg/dl Total Bilirubin (0.2-1.0) mg/dl AST (13-39) U/L ALT (7-52) U/L Alkaline Phosphatase (34-104) U/L Troponin I High Sens 47.3 H D (0-14) pg/ml C-Reactive Protein (0-0.5) mg/dl Total Protein (6.0-8.3) gm/dl Albumin (3.4-5.0) gm/dl Globulin (2.5-4.0) gm/dl Albumin/Globulin Ratio (0.9-2) Procalcitonin (0-0.5) ng/ml TSH (0.300-4.500) uIu/ml Anaplasma Smear A. phagocytophilum DNA Babesia Smear Babesia microti DNA PCR Lyme Disease IgG Ab (Negative) Lyme IgG (Western Blot) Lyme IgG 18 kDa Band Lyme IgG 23 kDa Band Lyme IgG 28 kDa Band Lyme IgG 30 kDa Band Lyme IgG 39 kDa Band Lyme IgG 41 kDa Band Lyme IgG 45 kDa Band Lyme IgG 58 kDa Band Lyme IgG 66 kDa Band Lyme IgG 93 kDa Band Lyme IgM Ab (WB) Lyme Disease IgM Ab (Negative) Lyme IgM 23 kDa Band Lyme IgM 39 kDa Band Lyme IgM 41 kDa Band SARS-CoV-2 (PCR) (Negative) Influenza Type A (PCR) (Neg) Influenza Type B (PCR) (Neg) RSV (RT-PCR) (Neg) Toxoplasma IgM Ab Pending Toxoplasma IgM Comment Pending Toxoplasma gondii IgG Pending 02/23/22 02/23/22 02/23/22 Range/Units 22:50 20:45 20:45 WBC (4.8-10.8) K/ul RBC (3.93-5.22) M/uL Hgb (12.0-16.0) g/dl Hct (34.1-44.9) % MCV (80.0-100.0) fL MCH (25.0-34.0) pg MCHC (32.0-36.0) g/dL RDW Std Deviation (36.4-46.3) fL RDW Coeff of Bibi (11.5-14.5) % Plt Count (130-400) K/uL MPV (9.4-12.3) fL Immature Gran % (Auto) % Neut % (Auto) % Lymph % (Auto) % Cochran % (Auto) % Eos % (Auto) % Baso % (Auto) % Neut # (Auto) (1.4-6.5) K/uL Lymph # (Auto) (1.2-3.4) K/uL Cochran # (Auto) (0.24-0.82) K/uL Eos # (Auto) (0-0.50) K/uL Baso # (Auto) (0-0.2) K/uL Immature Gran # (Auto) (0.00-0.02) K/uL ESR (0-20) mm/hr Sodium (136-145) mmol/L Potassium (3.5-5.1) mmol/L Chloride (98-107) mmol/L Carbon Dioxide (21-32) mmol/L Anion Gap (3-11) BUN (6-23) mg/dl Creatinine (0.6-1.2) mg/dl Est Cr Clr Drug Dosing ml/min Est GFR ( Amer) ml/min Est GFR (Non-Af Amer) ml/min BUN/Creatinine Ratio (10-20) Glucose (70-99(Fasting)) mg/dl Calcium (8.5-10.1) mg/dl Magnesium (1.7-2.4) mg/dl Total Bilirubin (0.2-1.0) mg/dl AST (13-39) U/L ALT (7-52) U/L Alkaline Phosphatase (34-104) U/L Troponin I High Sens (0-14) pg/ml C-Reactive Protein (0-0.5) mg/dl Total Protein (6.0-8.3) gm/dl Albumin (3.4-5.0) gm/dl Globulin (2.5-4.0) gm/dl Albumin/Globulin Ratio (0.9-2) Procalcitonin (0-0.5) ng/ml TSH 0.862 (0.300-4.500) uIu/ml Anaplasma Smear A. phagocytophilum DNA Babesia Smear Babesia microti DNA PCR Lyme Disease IgG Ab (Negative) Lyme IgG (Western Blot) Pending Lyme IgG 18 kDa Band Pending Lyme IgG 23 kDa Band Pending Lyme IgG 28 kDa Band Pending Lyme IgG 30 kDa Band Pending Lyme IgG 39 kDa Band Pending Lyme IgG 41 kDa Band Pending Lyme IgG 45 kDa Band Pending Lyme IgG 58 kDa Band Pending Lyme IgG 66 kDa Band Pending Lyme IgG 93 kDa Band Pending Lyme IgM Ab (WB) Pending Lyme Disease IgM Ab (Negative) Lyme IgM 23 kDa Band Pending Lyme IgM 39 kDa Band Pending Lyme IgM 41 kDa Band Pending SARS-CoV-2 (PCR) POSITIVE A* (Negative) Influenza Type A (PCR) Negative (Neg) Influenza Type B (PCR) Negative (Neg) RSV (RT-PCR) Negative (Neg) Toxoplasma IgM Ab Toxoplasma IgM Comment Toxoplasma gondii IgG 02/23/22 02/23/22 02/23/22 Range/Units 20:45 20:45 20:45 WBC (4.8-10.8) K/ul RBC (3.93-5.22) M/uL Hgb (12.0-16.0) g/dl Hct (34.1-44.9) % MCV (80.0-100.0) fL MCH (25.0-34.0) pg MCHC (32.0-36.0) g/dL RDW Std Deviation (36.4-46.3) fL RDW Coeff of Bibi (11.5-14.5) % Plt Count (130-400) K/uL MPV (9.4-12.3) fL Immature Gran % (Auto) % Neut % (Auto) % Lymph % (Auto) % Cochran % (Auto) % Eos % (Auto) % Baso % (Auto) % Neut # (Auto) (1.4-6.5) K/uL Lymph # (Auto) (1.2-3.4) K/uL Cochran # (Auto) (0.24-0.82) K/uL Eos # (Auto) (0-0.50) K/uL Baso # (Auto) (0-0.2) K/uL Immature Gran # (Auto) (0.00-0.02) K/uL ESR 21 H (0-20) mm/hr Sodium (136-145) mmol/L Potassium (3.5-5.1) mmol/L Chloride (98-107) mmol/L Carbon Dioxide (21-32) mmol/L Anion Gap (3-11) BUN (6-23) mg/dl Creatinine (0.6-1.2) mg/dl Est Cr Clr Drug Dosing ml/min Est GFR ( Amer) ml/min Est GFR (Non-Af Amer) ml/min BUN/Creatinine Ratio (10-20) Glucose (70-99(Fasting)) mg/dl Calcium (8.5-10.1) mg/dl Magnesium (1.7-2.4) mg/dl Total Bilirubin (0.2-1.0) mg/dl AST (13-39) U/L ALT (7-52) U/L Alkaline Phosphatase (34-104) U/L Troponin I High Sens (0-14) pg/ml C-Reactive Protein (0-0.5) mg/dl Total Protein (6.0-8.3) gm/dl Albumin (3.4-5.0) gm/dl Globulin (2.5-4.0) gm/dl Albumin/Globulin Ratio (0.9-2) Procalcitonin (0-0.5) ng/ml TSH (0.300-4.500) uIu/ml Anaplasma Smear A. phagocytophilum DNA Pending Babesia Smear Babesia microti DNA PCR Pending Lyme Disease IgG Ab (Negative) Lyme IgG (Western Blot) Lyme IgG 18 kDa Band Lyme IgG 23 kDa Band Lyme IgG 28 kDa Band Lyme IgG 30 kDa Band Lyme IgG 39 kDa Band Lyme IgG 41 kDa Band Lyme IgG 45 kDa Band Lyme IgG 58 kDa Band Lyme IgG 66 kDa Band Lyme IgG 93 kDa Band Lyme IgM Ab (WB) Lyme Disease IgM Ab (Negative) Lyme IgM 23 kDa Band Lyme IgM 39 kDa Band Lyme IgM 41 kDa Band SARS-CoV-2 (PCR) (Negative) Influenza Type A (PCR) (Neg) Influenza Type B (PCR) (Neg) RSV (RT-PCR) (Neg) Toxoplasma IgM Ab Toxoplasma IgM Comment Toxoplasma gondii IgG 02/23/22 02/23/22 02/23/22 Range/Units 20:45 20:45 20:45 WBC (4.8-10.8) K/ul RBC (3.93-5.22) M/uL Hgb (12.0-16.0) g/dl Hct (34.1-44.9) % MCV (80.0-100.0) fL MCH (25.0-34.0) pg MCHC (32.0-36.0) g/dL RDW Std Deviation (36.4-46.3) fL RDW Coeff of Bibi (11.5-14.5) % Plt Count (130-400) K/uL MPV (9.4-12.3) fL Immature Gran % (Auto) % Neut % (Auto) % Lymph % (Auto) % Cochran % (Auto) % Eos % (Auto) % Baso % (Auto) % Neut # (Auto) (1.4-6.5) K/uL Lymph # (Auto) (1.2-3.4) K/uL Cochran # (Auto) (0.24-0.82) K/uL Eos # (Auto) (0-0.50) K/uL Baso # (Auto) (0-0.2) K/uL Immature Gran # (Auto) (0.00-0.02) K/uL ESR (0-20) mm/hr Sodium (136-145) mmol/L Potassium (3.5-5.1) mmol/L Chloride (98-107) mmol/L Carbon Dioxide (21-32) mmol/L Anion Gap (3-11) BUN (6-23) mg/dl Creatinine (0.6-1.2) mg/dl Est Cr Clr Drug Dosing ml/min Est GFR ( Amer) ml/min Est GFR (Non-Af Amer) ml/min BUN/Creatinine Ratio (10-20) Glucose (70-99(Fasting)) mg/dl Calcium (8.5-10.1) mg/dl Magnesium 2.1 (1.7-2.4) mg/dl Total Bilirubin (0.2-1.0) mg/dl AST (13-39) U/L ALT (7-52) U/L Alkaline Phosphatase (34-104) U/L Troponin I High Sens (0-14) pg/ml C-Reactive Protein < 0.50 (0-0.5) mg/dl Total Protein (6.0-8.3) gm/dl Albumin (3.4-5.0) gm/dl Globulin (2.5-4.0) gm/dl Albumin/Globulin Ratio (0.9-2) Procalcitonin < 0.05 (0-0.5) ng/ml TSH (0.300-4.500) uIu/ml Anaplasma Smear See Comment A. phagocytophilum DNA Babesia Smear See Comment Babesia microti DNA PCR Lyme Disease IgG Ab Negative (Negative) Lyme IgG (Western Blot) Lyme IgG 18 kDa Band Lyme IgG 23 kDa Band Lyme IgG 28 kDa Band Lyme IgG 30 kDa Band Lyme IgG 39 kDa Band Lyme IgG 41 kDa Band Lyme IgG 45 kDa Band Lyme IgG 58 kDa Band Lyme IgG 66 kDa Band Lyme IgG 93 kDa Band Lyme IgM Ab (WB) Lyme Disease IgM Ab Positive A (Negative) Lyme IgM 23 kDa Band Lyme IgM 39 kDa Band Lyme IgM 41 kDa Band SARS-CoV-2 (PCR) (Negative) Influenza Type A (PCR) (Neg) Influenza Type B (PCR) (Neg) RSV (RT-PCR) (Neg) Toxoplasma IgM Ab Toxoplasma IgM Comment Toxoplasma gondii IgG 02/23/22 02/23/22 Range/Units 20:45 20:45 WBC 11.67 H (4.8-10.8) K/ul RBC 4.68 (3.93-5.22) M/uL Hgb 12.2 (12.0-16.0) g/dl Hct 38.7 (34.1-44.9) % MCV 82.7 (80.0-100.0) fL MCH 26.1 (25.0-34.0) pg MCHC 31.5 L (32.0-36.0) g/dL RDW Std Deviation 39.0 (36.4-46.3) fL RDW Coeff of Bibi 13.0 (11.5-14.5) % Plt Count 264 (130-400) K/uL MPV 10.6 (9.4-12.3) fL Immature Gran % (Auto) 0.4 % Neut % (Auto) 78.7 % Lymph % (Auto) 13.3 % Cochran % (Auto) 7.3 % Eos % (Auto) 0.1 % Baso % (Auto) 0.2 % Neut # (Auto) 9.19 H (1.4-6.5) K/uL Lymph # (Auto) 1.55 (1.2-3.4) K/uL Cochran # (Auto) 0.85 H (0.24-0.82) K/uL Eos # (Auto) 0.01 (0-0.50) K/uL Baso # (Auto) 0.02 (0-0.2) K/uL Immature Gran # (Auto) 0.05 H (0.00-0.02) K/uL ESR (0-20) mm/hr Sodium 137 (136-145) mmol/L Potassium 3.6 (3.5-5.1) mmol/L Chloride 102 (98-107) mmol/L Carbon Dioxide 29 (21-32) mmol/L Anion Gap 6 (3-11) BUN 11 (6-23) mg/dl Creatinine 0.84 (0.6-1.2) mg/dl Est Cr Clr Drug Dosing 112.6 ml/min Est GFR ( Amer) 116.8 ml/min Est GFR (Non-Af Amer) 100.8 ml/min BUN/Creatinine Ratio 13.1 (10-20) Glucose 97 (70-99(Fasting)) mg/dl Calcium 9.6 (8.5-10.1) mg/dl Magnesium (1.7-2.4) mg/dl Total Bilirubin 1.0 (0.2-1.0) mg/dl AST 23 (13-39) U/L ALT 13 (7-52) U/L Alkaline Phosphatase 90 (34-104) U/L Troponin I High Sens 58.9 H* (0-14) pg/ml C-Reactive Protein (0-0.5) mg/dl Total Protein 8.0 (6.0-8.3) gm/dl Albumin 4.7 (3.4-5.0) gm/dl Globulin 3.3 (2.5-4.0) gm/dl Albumin/Globulin Ratio 1.4 (0.9-2) Procalcitonin (0-0.5) ng/ml TSH (0.300-4.500) uIu/ml Anaplasma Smear A. phagocytophilum DNA Babesia Smear Babesia microti DNA PCR Lyme Disease IgG Ab (Negative) Lyme IgG (Western Blot) Lyme IgG 18 kDa Band Lyme IgG 23 kDa Band Lyme IgG 28 kDa Band Lyme IgG 30 kDa Band Lyme IgG 39 kDa Band Lyme IgG 41 kDa Band Lyme IgG 45 kDa Band Lyme IgG 58 kDa Band Lyme IgG 66 kDa Band Lyme IgG 93 kDa Band Lyme IgM Ab (WB) Lyme Disease IgM Ab (Negative) Lyme IgM 23 kDa Band Lyme IgM 39 kDa Band Lyme IgM 41 kDa Band SARS-CoV-2 (PCR) (Negative) Influenza Type A (PCR) (Neg) Influenza Type B (PCR) (Neg) RSV (RT-PCR) (Neg) Toxoplasma IgM Ab Toxoplasma IgM Comment Toxoplasma gondii IgG Diagnostic Findings CTA 02/23 FINDINGS: Thyroid: Normal in size and attenuation. Thoracic aorta: The thoracic aorta is normal in caliber and demonstrates standard 3-vessel arch anatomy. The thoracic aorta is not well opacified. Pulmonary vasculature: The pulmonary trunk is normal in caliber. There are no filling defects identified in main, lobar, or segmental pulmonary branches to suggest pulmonary embolus. Heart: The heart is normal in size and without pericardial effusion. Lungs and pleural spaces: There is mild patchy airspace consolidation at the left lung base. No pleural effusion is identified. Scattered calcified granulomas are observed. The trachea and central airways are patent. Mediastinum: Calcified mediastinal lymph nodes are similar to previous. No pathologically enlarged mediastinal lymph nodes are identified. Sowmya: Calcified right hilar lymph nodes are similar to previous. No pathologically enlarged hilar lymph nodes are identified. Axillae: There is no axillary lymphadenopathy. Upper abdomen: There is a calcified splenic granuloma. Partially visualized upper abdominal viscera is otherwise within normal limits. Skeletal structures: A hemangioma is noted in the body of T2. No lytic or blastic bony lesions are seen. IMPRESSION: 1. There is no evidence of pulmonary embolus in the main, lobar, or segmental pulmonary arteries. 2. Patchy airspace consolidation at the left lung base is typical for pneumonia. Clinical correlation will be required and radiographic follow-up to resolution is recommended. Radiographic follow-up should include both PA and lateral views. CXR 02/23 FINDINGS: An AP, portable, upright chest radiograph is compared to chest x-ray and chest CT dated 04/10/2021. Calcified right hilar nodes are unchanged. The cardiomediastinal silhouette is unremarkable. The lungs and pleural spaces are clear. No pneumothorax is seen. The bony thorax is grossly intact. IMPRESSION: No active disease in the chest.
[2022-02-24] MEDS ORDERED: COLCHICINE 0.6 MG TAB PO SCH (09:00)
--- NOTE | 2022-02-24 11:16 | Electrocardiogram Report ---
Test Reason : Blood Pressure : / mmHG Vent. Rate : 064 BPM Atrial Rate : 052 BPM P-R Int : 164 ms QRS Dur : 080 ms QT Int : 408 ms P-R-T Axes : 054 079 033 degrees QTc Int : 420 ms Sinus bradycardia with occasional Premature ventricular complexes Possible Left atrial enlargement T wave abnormality, consider anterior ischemia Abnormal ECG When compared with ECG of 11-APR-2021 05:43, Premature ventricular complexes are now Present Nonspecific T wave abnormality now evident in Inferior leads Nonspecific T wave abnormality now evident in Lateral leads Confirmed by Nathanael Whaley ([id number]) on 02/24/2022 11:15:45 AM Referred By: REFERRED SELF Confirmed By:Nathanael Whaley
--- NOTE | 2022-02-24 11:22 | Electrocardiogram Report ---
Test Reason : Blood Pressure : / mmHG Vent. Rate : 044 BPM Atrial Rate : 045 BPM P-R Int : 000 ms QRS Dur : 082 ms QT Int : 478 ms P-R-T Axes : 000 082 053 degrees QTc Int : 408 ms Junctional bradycardia Nonspecific T wave abnormality Abnormal ECG When compared with ECG of 23-FEB-2022 20:37, (unconfirmed) Junctional rhythm has replaced Sinus rhythm Nonspecific T wave abnormality, improved in Inferior leads T wave inversion no longer evident in Anterior leads Confirmed by Nathanael Whaley ([id number]) on 02/24/2022 11:21:30 AM Referred By: REFERRED SELF Confirmed By:Nathanael Whaley
--- NOTE | 2022-02-24 11:45 | Cardiology Consultation ---
Date of Consultation February 24, 2022 Assessment & Plan (1) Elevated troponin: -minor elevation may be related to her COVID infection. -she experience very minimal chest discomfort yesterday making myocarditis less likely. -continue to trend troponin. (2) COVID-19: -may be the cause of her elevated troponin. -may be responsible for left lower lobe pneumonia. -management per primary team. (3) Junctional rhythm: -was also noted during our hospitalization last year. -felt to be secondary to a high degree of vagal tone. 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 (4) Lyme disease: -Western blot is pending. History of Present Illness Attending Physician: Raulito Samuel MD History of Present Illness Miss Stone is a 21-year-old female admitted yesterday with fever, chills, chest tightness, and elevated high sensitivity troponin. This consultation was ordered to assist in her management. Of note, the patient was seen by Dr. Mcfarland last year. The patient was in her usual state of health until approximately 3-4 weeks ago when she contracted a COVID infection. Her symptoms were relatively mild, but she has had a persistent and productive cough. On the day of presentation, she developed fever, chills, very mild chest tightness, and palpitations. She presented to the emergency room for further care. She tested positive for COVID-19 and Lyme IgM. 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 She was hospitalized with chest pain and elevated troponin at 0.47. Echocardiogram during the hospitalization was normal. She has demonstrated numerous episodes of junctional rhythm with AV dissociation felt secondary to high vagal tone. She was treated for total of 3 months with colchicine. She did have a Holter monitor performed in May 2021 which noted 80% PVCs. She was seen on May 23, [address] Mcfarland's team. 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 She pushes herself while riding a bicycle, swimming, and running. She hopes to participate in triathlons in the near future. She has never experienced exertional chest pain. Currently, patient is resting comfortably and without complaints of chest discomfort or shortness of breath. She is anxious for hospital discharge. Past medical and surgical history 1. Asthma 2. 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 Hails from [place], [place]. No tobacco Occasional alcohol at family functions. Family history Mother is 59 and healthy Father is 59 and healthy Her sister is alive and well. Review of systems A 10 review systems was undertaken and negative except that described above. Allergies Allergy/AdvReac Type Severity Reaction Status Date / Time pollen extracts Allergy Intermediate CONGESTION Verified 02/23/22 22:17 Home Medications Medication Instructions Recorded Confirmed Type albuterol sulfate 90 mcg/actuation 2 puff inhalation Q6H PRN prior to 04/10/21 02/23/22 History aerosol inhaler exercise fexofenadine 180 mg tablet 180 mg PO DAILY PRN Allergic 04/10/21 02/23/22 Hi story Symptoms fluticasone propionate 50 2 spray intranasal DAILY PRN 04/10/21 02/23/22 History mcg/actuation nasal Allergy Symptoms spray,suspension Patient History Medical History (Updated 02/24/22 @ 03:20 by Mariana Burns DO) Allergic rhinitis Lung granuloma Mild intermittent asthma Myocarditis Surgical History (Updated 02/24/22 @ 01:24 by Ria Delgado PA-C) No pertinent past surgical history Family History (Updated 02/24/22 @ 03:12 by Mariana Burns DO) Other Family history non-contributory Social History Smoking Status: Never smoker Second Hand Exposure: No; Hx Alcohol Use: Yes Alcohol type: wine Hx Substance Use: No Preferred Language: Macanese Communication Ability: Effective 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 Burns as patient in [facility] isolation. Results & Data ([facility]) Vital Signs (Past 12 Hours) Vital Signs Temp Pulse Pulse Resp BP BP Pulse Ox 02/24/22 08:30 36.7 C 48 L 20 103/55 L 100 02/24/22 07:00 47 L 02/24/22 02:03 38 L 02/24/22 02:22 44 L 02/24/22 03:12 36.6 C 42 L 18 103/63 99 02/24/22 02:08 02/24/22 02:08 36.7 C 39 L 18 109/62 99 02/24/22 01:00 40 L 19 100/56 L 99 02/24/22 00:00 41 L 20 98/53 L 98 O2 Del Method 02/24/22 08:30 Room Air 02/24/22 07:00 02/24/22 02:03 02/24/22 02:22 02/24/22 03:12 Room Air 02/24/22 02:08 Room Air 02/24/22 02:08 Room Air 02/24/22 01:00 Room Air 02/24/22 00:00 Room Air Laboratory Results CBC notes hemoglobin 11.1, hematocrit 35.2, white count 10.3, and platelet count of [id number]. Electrolytes note a sodium 139, potassium 4.4, chloride 106, bicarb 20, BUN 10, creatinine 0.75, and glucose of 98. High sensitivity troponin on presentation was 50.9 with a follow-up value of 54.5. Anaplasmosis and Babesia smears were negative. Lyme IgM is positive, but IgG negative. Western blot is pending. Influenza a and B are negative. RSV is negative. Toxoplasmosis is pending. Diagnostic Findings Echocardiogram notes normal left ventricular size and function without wall motion abnormalities. Left ventricular ejection fraction is 55-60%. No significant valvular pathology. Initial EKG notes sinus bradycardia with frequent PVCs. Follow-up tracing notes junctional bradycardia. Chest x-ray shows no acute disease. CT scan of the chest notes left lower lobe consolidation consistent with a pneumonia. No pulmonary emboli. PG Care Time/CCT Total # of Minutes Spent Total Time Spent with Patient: Total time spent is greater than 50% in coordination of care (as documented) at patient's floor/unit and/or counseling patient: Coding Level of Care Code 40556 Office/OBS Consult Lvl 4 Diagnoses Elevated troponin R77.8 COVID-19 U07.1 Junctional rhythm I49.8 Lyme disease A69.20
--- NOTE | 2022-02-24 12:54 | XCELERA ---
[id number]
--- NOTE | 2022-02-24 16:09 | Discharge Summary ---
Date of Service February 24, 2022 Admission HPI Per Admitting Provider Mey Stone is a 21yo female presenting with tightness in her chest and lungs. Patient tested POSITIVE for Covid-19 infection appx 3-4 weeks ago. Overall she had a benign course. She has had a persistent cough since then, productive for thick yellow sputum. Today 02/23/22 she developed fever, chills as well as a feeling of tightness in her chest and lungs as well as feeling some palpitations. No syncope or dizziness (has some baseline dizziness with positional changes). She has had nasal congestion today as well and loss of taste and smell this AM. She performed a rapid Covid-19 test at home which was NEGATIVE. In the ER she is afebrile, HD stable - baseline bradycardia with frequent PVCs HS-troponin elevated at 58.9 as well as elevation of ESR to 21 and WBC to 11.67 Patient was hospitalized at [facility] on 04/11/21 after developing chest discomfort while running. She was noted to have an elevated troponin at 0.47. Echocardiogram was NORMAL. She was treated with Colchicine and Doxycycline for possible Lyme carditis. Her Western Blot analysis was found to be equivocal. Her cardiac rhythm during admission showed bradycardia and junctional rhythm with AV dissociation due to increased vagal tone. Frequent PVCs noted on Holter monitor 8% of beats on Holter monitor with two 4- beat NSVT runs Patient was seen by Cardiology in followup on 05/23/21. Admission Exam Per Admitting Provider General: patient resting comfortably, NAD, non-toxic in appearance, AA&O x 4 Skin: warm, dry, intact, no rashes or lesions HEENT: NC/AT, PERRL, EOMI, anicteric sclera, conjunctiva without injection, external ear normal to inspection and nontender, nares patent, moist mucus membranes, dentition intact, no oropharyngeal lesions, neck supple, trachea midline, no LAD, no thyromegaly, no JVD Heart: +S1/S2, regular, bradycardic with occasional ectopic beat, no m/r/g Lungs: equal air entry bilaterally, crackles present in left base, no rhonchi/wheezes Abd: +BS, soft, NT/ND, no masses/organomegaly/ascites Ext: warm, 2+ pulses in UE/LE bilaterally, no clubbing/cyanosis or edema Neuro: nonfocal, patient AA&O x 4, speech intact, no facial droop, moving all extremities on command with equal strength 5/5 Principal Diagnosis Pneumonia Discharge Exam General: patient resting comfortably, NAD, non-toxic in appearance, A&O x 4 Skin: warm, dry, intact, no rashes or lesions HEENT: NC/AT, PERRL, EOMI, anicteric sclera, conjunctiva without injection, external ear normal to inspection and nontender, nares patent, moist mucus membranes, dentition intact, no oropharyngeal lesions, neck supple, trachea mid line, no LAD, no thyromegaly, no JVD Heart: +S1/S2, regular, bradycardic with occasional ectopic beat, no m/r/g Lungs: equal air entry bilaterally, crackles present in left base, no rhonchi/wheezes Abd: +BS, soft, NT/ND, no masses/organomegaly/ascites Ext: warm, 2+ pulses in UE/LE bilaterally, no clubbing/cyanosis or edema Neuro: nonfocal, patient AA&O x 4, speech intact, no facial droop, moving all extremities on command with equal strength 5/5 Discharge Data Allergies Allergy/AdvReac Type Severity Reaction Status Date / Time pollen extracts Allergy Intermediate CONGESTION Verified 02/23/22 22:17 Consultations 02/23/22 23:05 ED Decision to Admit Stat 02/24/22 02:02 Consult Cardiology Routine Ordered Studies 02/23/22 20:15 CT angio chest PE protocol Stat Hospital Course (1) Myocarditis: (2) Pneumonia: (3) COVID-19: (4) Mild intermittent asthma: Plan Ms. Stone is a 21 y/o female with a PMHx of myocarditis, asthma, allergic rhinitis, and recent COVID infection here for evaluation of chest tightness and productive cough who is doing well today. #Myocarditis Patient here with chest and lung tightness with associated fever, chills, myalgias, palpitations, nasal congestion, and loss of taste/smell. No syncope or dizziness beyond her baseline positional dizziness. She was found to have elevated HS-trop 58.9 --> 47.3. Patient also had elevated WBC 11.67 on admission and an ESR of 21. Of note, patient had a recent covid-19 infection approx 3-4 weeks prior. She took a rapid test at home yesterday which was negative. She tested positive for covid-19 here in the hospital. Lyme IgM + with western blot pending. Influenza A/B negative. Of note she was diagnosed with myocarditis 04/11/21 at [facility]. At that time she had developed chest discomfort while running and had an elevated trop at 0.48. She was treated with colchicine and doxy for possible Lyme carditis. Western blot was equivocal at that time. Patient was directed to f/u with cards outpatient because her rhythm during admission was bradycardic and had junctional rhythm with AV dissociation likely due to increased vagal tone. Holter monitor showed frequent PVCs 8% of beats on Holter with two 4-beat NSVT runs. Patient is an avid runner with baseline bradycardia 40-50s. Consulted cardiology. Patient is extremely physically active. She runs every day during the school year. During the summer she swims and bikes every day. She "pushes her body to the limit" every time she exercises and does not take rest days. Troponin elevated 58.9 --> 47.3 --> 54.5. Echo showed - Left ventricular systolic function is normal 55-60% EF. No regional wall motion abnormalities noted. No significant valvular pathology. Will follow up on serology. Follow up with cardiology - Dr. Mcfarland. #Pneumonia Patient had COVID-19 approximately 3-4 weeks ago. Her course was relatively benign. She reports persistent productive cough since the infection with yellow sputum. New fevers and chills today. CTA suggests LLL consolidation, crackles on exam. Patient is HDS in NAD with no increased work of breathing and adequate oxygenation on room air. Patient on Azithromycin 250 mg and CTX 1 g for possible CAP inpatient. Discharge on Augmentin 875mg 7 days. #COVID-19 Patient tested positive for COVID-19 3-4 weeks ago. PCR positive on admission. It is possible this is a new infection given the abrupt onset of symptoms - fever, chills, myalgias, loss of taste/smell. Continue isolation precautions for now. Monitor for respiratory distress. PCR may remain positive for up to 3 months s/p infection. Recommended she isolate for 10 days after the onset of symptoms to avoid infecting others. #Mild intermittent asthma Chronic. Stable. No wheezing GEN/GI: regular diet Code Status: Full Dispo: home Total Time Total Time Spent Total Time Spent (In Minutes): See attending attestation. Discharge Plan Discharge Items Patient Disposition: Home - Self-Care Reason For Visit: ELEVATED TROPONIN, ?MYOCARDITIS Discharge Diagnosis: Myocarditis Pneumonia Activity: Per Instructions section Activity Comment: Start low and go slow. Non-emergency contact: Primary Care Provider Call non-emergency contact if: your symptoms worsen, your pain is worsening and your temperature is above 101.5 Follow-up/Referrals: [facility] [Primary Care Provider] - Diet: Regular Addtl Attending Provider Instructions: You were seen at the hospital for chest and lung tightness with associated fev ers, chills, muscles aches, loss of taste and smell, and runny nose. You were found to have ammonia and given antibiotics. We will give you antibiotics to go home with 7 days of Augmentin 875 mg twice a day. Take as directed. Complete the entire course of antibiotics. You were also found to have elevated troponins and myocarditis. Follow up with Dr. Mcfarland This may be covid related or some other infection. Rest and take it easy. When you start exercising again start slowly and with low intensity activities. It was great to be part of your care team! Pending Studies at Discharge: Yes Studies:: serology Stand-Alone Forms: My [facility] Immun[employer], Smoking Cessation Medications and DC Order Prescriptions: New amoxicillin-pot clavulanate 875-125 mg tablet 1 tab PO BID Qty: 14 0RF Continued fexofenadine 180 mg Tablet 180 mg PO DAILY PRN (Reason: Allergic Symptoms) albuterol sulfate 90 mcg/actuation Hfa Aerosol Inhaler 2 puff INHALATION Q6H PRN (Reason: prior to exercise) Rx Instructions: and uses as needed for allergy season fluticasone propionate 50 mcg/actuation Raymond,Suspension 2 spray INTRANASAL DAILY PRN (Reason: Allergy Symptoms) Discharge Orders: Discharge Order (Routine); Ordered 02/24/22 Ordered By: Radha Neal Admission Data Admit Date/Time: 02/23/22 23:48 Attending Provider: Raulito Samuel Admit Provider: Mariana Burns Primary Care Provider: [facility] Other Providers: Mariana Burns ; Nathanael Whaley Other Interventions: Discharge Summary Assessment (RN) Last Done: 02/24/22 16:07 Supervising Physician Co-Signing Physician Notes Attending attestation Pt seen and examined in concert with Dr. Neal. In agreement with the documented findings as noted in the resident documentation with any exceptions or additions as noted here. Resting comfortably in bed with minimal upper respiratory symptoms and no chest pain, SOB On examination, S1/S2 nl RRR no MCG. CTAB. Abd NT/ND BS+ve Myocarditis in the setting of COVID-19 reinfection, PNA - complete course of augmentin for 10 days. Follow up with cardiology. 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 Total attending physician time spen with this patient's care on the day of discharge: 35 minutes Resident Activity Tracking Resident Involvement: Resident Care Provided Care Provided: Adult Hospital Medicine
[2022-02-25] MEDS ORDERED: AZITHROMYCIN 250 MG in DEXTROSE 5% 250 ML IV SCH (02:00)
[2022-02-27 08:02] LABS: 18KDIGG Band NON-REACTIVE; 23KDIGG Band NON-REACTIVE; 23KDIGM Band REACTIVE; 28KDIGG Band NON-REACTIVE; 30KDIGG Band NON-REACTIVE; 39KDIGG Band NON-REACTIVE; 39KDIGM Band NON-REACTIVE; 41KDIGG Band REACTIVE; 41KDIGM Band NON-REACTIVE; 45KDIGG Band NON-REACTIVE; 58KDIGG Band NON-REACTIVE; 66KDIGG Band NON-REACTIVE; 93KDIGG Band NON-REACTIVE; Lyme Antibodies, WB IgG NEGATIVE (NEGATIVE); Lyme Antibodies, WB IgM NEGATIVE (NEGATIVE)
[2022-02-28 03:03] LABS: Babesia microti DNA Not Detected (Not Detected)
[2022-02-28 18:41] LABS: Toxoplasma gondii IgG Ab, EIA <7.20 IU/mL; Toxoplasma gondii IgM Ab, EIA <8.00 AU/mL
== END 2022-02-24 16:43 | disposition home or self-care (01) | DRG 314 ==
LOC: ED 18:38 → SUATTDRO 23:48 → INTOOBSV 23:48 → 2W 23:48